=== PATIENT | male | born 1960 | race Caucasian/White ===

== ENCOUNTER 2019-07-11 08:36 | Outpatient (CLI) | payer BC, SELFPAY ==
--- NOTE | 2019-07-11 08:45 | US_ITS ---
WS: [id number] ULTRASOUND THYROID TECHNIQUE: Ultrasound of the thyroid. CLINICAL INFORMATION: mass of right side of neck COMPARISON: None. FINDINGS: Thyroid: Large right thyroid nodule measuring 4.0 x 2.5 x 3.3 CM. Recommend further evaluation with F NA. Associated vascularity. Right thyroid lobe: 6.7 cm x 3.3 cm x 3.2 cm Left thyroid lobe: 4.1 cm x 1.3 cm x 1.3 cm. A few incidental tiny cysts likely benign colloid cysts. Isthmus: 0.3 mm. Cervical lymphadenopathy: None. US/US thyroid 62525 IMPRESSION: 1. Dominant right thyroid nodule measuring 4.0 CM. Recommend further evaluatio n with FNA. 2. A few tiny colloid cysts left thyroid.
== END 2019-07-11 08:37 | disposition home or self-care (01) ==
LOC: RAD 08:38
PROVIDERS: Family Provider Nurse Practitioner Family; PCP Registered Nurse; Visit Provider Registered Nurse
DX: R22.1 Localized swelling, mass and lump, neck (principal); E04.1 Nontoxic single thyroid nodule
CPT/HCPCS: 76536

== ENCOUNTER → 2019-12-12 09:40 | Outpatient (BNVA) | payer BC, SELFPAY | PROVIDERS: Family Provider Nurse Practitioner Family; PCP Registered Nurse; Visit Provider Registered Nurse | DX: E04.1 Nontoxic single thyroid nodule (principal); M71.30 Other bursal cyst, unspecified site; N52.9 Male erectile dysfunction, unspecified; Z12.5 Encounter for screening for malignant neoplasm of prostate | CPT/HCPCS: 80053; 80061; 84402; 84403; 84443; 85025; G0103 ==

== ENCOUNTER → 2020-01-02 08:38 | Outpatient (BNVA) | payer BC, SELFPAY | PROVIDERS: Family Provider Nurse Practitioner Family; PCP Registered Nurse; Referring Provider Registered Nurse; Visit Provider Urology | DX: R97.20 Elevated prostate specific antigen [PSA] (principal); N52.9 Male erectile dysfunction, unspecified; Z80.42 Family history of malignant neoplasm of prostate | CPT/HCPCS: 81001; 84153 ==

== ENCOUNTER → 2020-01-17 12:04 | Outpatient (BNVA) | payer BC, SELFPAY | PROVIDERS: Family Provider Nurse Practitioner Family; PCP Registered Nurse; Visit Provider Urology | DX: R97.20 Elevated prostate specific antigen [PSA] (principal) | CPT/HCPCS: 88305 ==

== ENCOUNTER 2020-02-05 12:59 | Outpatient (CLI) | payer BC, SELFPAY ==
--- NOTE | 2020-02-05 18:29 | N.ONRAD NP_ITS ---
Radiation Oncology New Patient Visit Patient: Rohit Mcdaniel MR#: [id number] : 1960 Age: 59 Sex: Male Dictated by: Dr. Venkatesh Kaiser Date of Service: 02/05/2020 Referring Physician(s) : Dr. Miguel Angel Kendrick Diagnosis: cT1c unfavorable intermediate risk prostate cancer, Eden grade 3+4 in 2/12 cores, and Eden grade 3+3 in 10/12 cores, pretreatment PSA 12.9 ng/mL (01/2020), perineural invasion was identified in the left lateral mid and left lateral base, pretreatment international prostate symptom score of 6, positive pretreatment erectile dysfunction addressed with sildenafil 50 mg. Purpose of Visit: Discuss the role of radiotherapy with curative intent. Chief Complaint / History of Present Illness: History of Present Illness: The patient is a 59-year-old male who had a screening PSA of 10.56 on January 02, 2020. After a repeat PSA of 12.9 nanograms per milliliter (01/17/2020) the patient underwent prostate biopsy by Dr. Kendrick. Pathology revealed Eden score 3+4 in 2/12 cores (70-85% of tissue involved), and Eden score 3+3 in 10/12 cores (5-95% of tissue involved). Perineural invasion was identified in the left lateral mid and left lateral base (both GG 3+3 cores). The patient completed an international prostate symptom score today, and this revealed a total score of 6, which indicates mild urinary symptoms. He reports nocturia once per night. The patient also reports mild to moderate erectile dysfunction requiring the use of sildenafil 50 mg. The patient reports a positive family history of prostate cancer in his father (diagnosed in his 70s). In consultation today, the patient reports no complaints. Current Medications: Levothyroxine Sodium, sildenafil Citrate. Allergies: No Known Allergies Medical History: - Hyperlipidemia, - hypogonadism. No history of collagen vascular disease. No previous radiation therapy. Surgical History: Colonoscopy 9 years ago, hemorrhoidectomy and thyroidectomy in 09/2019. Family History: Father is at age 82 having experienced Prostate Cancer. Social History: Last screened on 02/05/2020 - Never smoked. Last screened on 02/05/2020 - Past drinker. Current Complaints / Review of Systems: Constitutional - Complains of moderate fatigue. Denies fever, night sweats and change in weight. Eyes - Denies blurred vision and double vision. ENMT - Complains of problems with hearing in both ears and wears a hearing aid in both ears. Denies dysphagia, ear pain, mouth dryness, stomatitis and altered taste. Neck - Denies neck pain. Integumentary - Denies rash. Cardiovascular - Denies arrhythmias, chest pain and edema. Respiratory - Denies cough, dyspnea and wheezing. Gastrointestinal - Denies abdominal pain, constipation, diarrhea, heartburn / dyspepsia, hemorrhoids, melena / GI bleeding, nausea and vomiting. Genitourinary (M) - Complains of impotence and nocturia gets up about 1 time per night. Denies dysuria, frequency, hematuria, incontinence and urgency. Musculoskeletal - Complains of joint pain both shoudlers. Denies bone pain and muscle weakness. Neurologic - Denies dizziness, abnormal gait and headaches. Endocrine - Complains of thyroid disease. Denies diabetes. Hematologic/Lymphatic - Denies tender or enlarged lymph nodes.. Vital Signs: Performed on 02/05/2020 2:05 PM BMI - 37.537 kg/m2 (high), Height - 60.00 in, Weight - 192.2 lbs, Temperature - 98.2 f, Pulse - 89, Respiration - 20, O2 Sat - 97 %, Pain - 0 and BP - 134/ 92 mm(hg)(/high). Physical Exam: GENERAL:??? The patient is alert, and in no acute distress. HEENT:??? Head is normocephalic. Face is symmetric. External ocular movements are intact. Sclera and conjunctivae are non erythematous. NECK:??? Trachea is midline.??? Thyroid is not enlarged by palpation.??? LYMPH NODES:??? There is no cervical, supraclavicular, or axillary adenopathy bilaterally. LUNGS:??? Clear to auscultation bilaterally. Respiratory movement is unlabored. HEART:??? Regular rate and rhythm. PURA: Digital rectal examination revealed a normal rectal tone, a firm prostate without nodularity, and Hemoccult test was negative. ABDOMEN:??? Soft, nontender, without palpable mass.??? No hepatosplenomegaly. EXTREMITIES:??? No deformities. NEUROLOGIC:??? Gait and station are normal.??? The patient is well coordinated and strength is equal bilaterally. COMPUTER SYSTEM SPECIALIST:??? Cranial nerves II-XII are intact and without focal deficits.??? Psych: Affect is normal. Skin: Cursory review of the skin reveals no obvious lesions concerning for malignancy. Performance Status: 0 - Fully active, able to carry on all predisease activities without restrictions. (ECOG) Pain assessment: This patient???s pain was personally assessed by me. This patient requires no adjustments to pain medications at this time. Assessment/Plan: The patient is a 59-year-old male with a 22-year median life expectancy (per social security data tables) and a new diagnosis of cT1c unfavorable intermediate risk prostate cancer (per NCCN guidelines) due to: -) Two intermediate risk factors which include grade group 2, and PSA ranging from 10-20 ng/mL; plus, -) 100% of cores were positive for disease. Biopsy revealed that 10/12 cores were positive for Dom score 3+3 (5-95% of tissue involved), and 2 cores were positive for Dom score 3+4 (70% -85% of tissue involved). The estimated risk for extracapsular extension was 77% per [facility] prediction tools, the predicted risk for lymph node involvement was 19%, and the predicted risk of seminal vesicle invasion was 24%. His pretreatment PSA is 12.9 ng/mL (01/2020), his pretreatment international prostate symptom score is 6 indicating mild urinary symptoms, and he reports requiring the use of Viagra to address mild to moderate erectile dysfunction. The patient's pretreatment PSA volume is 26 cc per ultrasound (01/17/2020). The patient was presented with treatment options which included surgical resection, prostate seed brachytherapy, and external beam radiation therapy. We discussed prognosis, pros and cons of various treatment modalities, radiation treatment logistics, and potential treatment related side effects. In order to help the patient???s decision process, I recommend an MRI of the prostate to determine if there is any radiographic concern for extracapsular extension or pelvic lymphadenopathy. The patient is scheduled to see a surgeon to discuss prostatectomy within the next week, and hopefully we can have this MRI completed prior to that visit. I have requested office staff to assist in ordering this MRI. All the patient's questions were answered, and the patient will share his answer regarding which treatment modality he would like to consider after he consults with the surgeon. I also recommended that the patient be considered for short-term androgen deprivation therapy (4-6 months). Signed by: Venkatesh Kaiser MD 02/05/2020 6:28:07 PM <<Signature on File>> Time spent with patient: CPT Code: CPT Code:
== END 2020-02-05 13:00 | disposition home or self-care (01) ==
LOC: ONCMED 13:03
PROVIDERS: PCP Registered Nurse; Visit Provider Radiology Radiation Oncology
DX: C61 Malignant neoplasm of prostate (principal); Z80.42 Family history of malignant neoplasm of prostate
CPT/HCPCS: 99205

== ENCOUNTER 2020-02-05 13:25 | Outpatient (CLI) | payer BC, SELFPAY ==
[2020-02-05 14:41] LABS: Thyroid Stimulating Hormone 4.71 uIU/mL (0.27-4.20)
== END 2020-02-05 13:26 | disposition home or self-care (01) ==
LOC: LAB 13:27
PROVIDERS: PCP Registered Nurse; Visit Provider Registered Nurse
DX: E03.9 Hypothyroidism, unspecified (principal)
CPT/HCPCS: 84443

== ENCOUNTER 2020-05-27 13:55 | Outpatient (CLI) | payer BC, SELFPAY ==
[2020-05-27 14:49] LABS: Thyroid Stimulating Hormone 3.68 uIU/mL (0.27-4.20)
[2020-05-27 14:51] LABS: Alanine Aminotransferase 30 U/L (0-41); Albumin Level 4.7 g/dL (3.5-5.2); Alkaline Phosphatase 72 IU/L (40-130); Anion Gap 16.1 (5-19); Aspartate Amino Transferase 26 U/L (0-40); Blood Urea Nitrogen 10 mg/dL (6-20); Calcium 9.6 mg/dL (8.5-10.5); Carbon Dioxide 25 mmol/L (22-29); Chloride 100 mmol/L (98-107); Globulin 2.6 g/dL (1.3-4.6); Glomerular Filtration Rate 137.9 mL/min (90-130); Glucose 91 mg/dL (65-115); Osmolality Calculated 283 mOsm/kg (285-295); Potassium 4.1 mmol/L (3.5-5.1); Sodium 137 mmol/L (136-145); Total Bilirubin 0.3 mg/dL (0.15-1.2); Total Protein 7.3 g/dL (6.6-8.7)
== END 2020-05-27 13:56 | disposition home or self-care (01) ==
LOC: LAB 14:00
PROVIDERS: PCP Registered Nurse; Visit Provider Registered Nurse
DX: E03.9 Hypothyroidism, unspecified (principal)
CPT/HCPCS: 36415; 80053; 84443

== ENCOUNTER → 2020-06-24 16:26 | Outpatient (BNVA) | payer BC, SELFPAY | PROVIDERS: PCP Registered Nurse; Visit Provider Urology | DX: C61 Malignant neoplasm of prostate (principal); N52.9 Male erectile dysfunction, unspecified; N39.3 Stress incontinence (female) (male) | CPT/HCPCS: 81003; 84153 ==

== ENCOUNTER → 2020-07-09 09:10 | Outpatient (BNVA) | payer BC, SELFPAY | PROVIDERS: PCP Registered Nurse; Visit Provider Registered Nurse | DX: E29.1 Testicular hypofunction (principal); R53.83 Other fatigue | CPT/HCPCS: 84402; 84403 ==

== ENCOUNTER → 2020-08-06 08:11 | Outpatient (BNVA) | payer BC, SELFPAY | PROVIDERS: PCP Registered Nurse; Visit Provider Registered Nurse | DX: E03.9 Hypothyroidism, unspecified (principal) | CPT/HCPCS: 84443 ==

== ENCOUNTER → 2020-09-22 13:38 | Outpatient (BNVA) | payer BC, SELFPAY | PROVIDERS: PCP Registered Nurse; Visit Provider Urology | DX: N39.9 Disorder of urinary system, unspecified (principal); E29.1 Testicular hypofunction; C61 Malignant neoplasm of prostate; N39.3 Stress incontinence (female) (male); N52.34 Erectile dysfunction following simple prostatectomy | CPT/HCPCS: 81003; G0103 ==

== ENCOUNTER → 2020-11-10 10:53 | Outpatient (BNVA) | payer BC, SELFPAY | PROVIDERS: PCP Registered Nurse; Visit Provider Registered Nurse | DX: E03.9 Hypothyroidism, unspecified (principal); R53.83 Other fatigue | CPT/HCPCS: 82607; 84439; 84443; 84481 ==

== ENCOUNTER → 2020-11-19 07:54 | Outpatient (BNVA) | payer BC, SELFPAY | PROVIDERS: PCP Registered Nurse; Visit Provider Urology | DX: C61 Malignant neoplasm of prostate (principal); E29.1 Testicular hypofunction; N52.34 Erectile dysfunction following simple prostatectomy; N39.3 Stress incontinence (female) (male) | CPT/HCPCS: 81003 ==

== ENCOUNTER → 2020-12-22 08:03 | Outpatient (BNVA) | payer BC, SELFPAY | PROVIDERS: PCP Registered Nurse; Visit Provider Urology | DX: R53.83 Other fatigue (principal); C61 Malignant neoplasm of prostate; N52.34 Erectile dysfunction following simple prostatectomy; E03.9 Hypothyroidism, unspecified | CPT/HCPCS: 81003; 84153; 84403 ==

== ENCOUNTER → 2021-03-05 08:27 | Outpatient (BNVA) | payer BC, SELFPAY | PROVIDERS: PCP Registered Nurse; Visit Provider Surgery | DX: K40.90 Unilateral inguinal hernia, without obstruction or gangrene, not specified as recurrent (principal) | CPT/HCPCS: 87635 ==

== ENCOUNTER 2021-03-10 06:03 | Day surgery (SDC) | payer BC, SELFPAY ==
[2021-03-09 09:59] VITALS: BMI 26.5
[2021-03-10] VITALS (14 sets, daily range): BP systolic 124–145; BP diastolic 86–107; PULSE 73–88; RESP 15–18; TEMP 36.1–36.7; O2SAT 95–100
[2021-03-10] MEDS: sodium chloride 0.9% 1,000 ML 30 ML IV (06:42)
--- NOTE | 2021-03-10 06:46 | ANES.PREANE2 ---
Pre-Anesthetic Assessment Pre-Anesthetic Assessment: Height/Weight: Height 1.78 m Weight 83.915 kg Temp Pulse Resp BP Pulse Ox 97.5 F L 81 18 144/93 96 03/10/21 06:17 03/10/21 06:17 03/10/21 06:17 03/10/21 06:17 03/10/21 06:17 Preop Diagnosis: Right inguinal hernia Proposed Procedure: Operation Date: 03/10/21 07:00 Proposed Procedures p Laparoscopic Inguinal Hernia Repair 96513 K40.90(Not Applicable) - Romeo Aquino MD Was Beta Neno taken within 24 hours: N/A Was Clonidine taken within 24 hours: N/A Last intake: Intake Last Liquid Date 03/09/21 Last Liquid Time 22:00 Last Solid Date 03/09/21 Last Solid Time 22:00 Exam: Pre-Anes Outpt Exam: alert, oriented x 3 and clear to auscultation bilaterally Airway: Submandibular: WNL Cervical ROM: WNL MP: 3 Dentition: Full History/ROS: Other Pulmonary: Pulmonary: None reported CV/HEM: CV/HEM: None reported : : None reported Hepatic: Hepatic: None reported GI: GI: None reported Metabolic: Metabolic: Thyroid (s/p thyroidectomy 2019) Musc/skel: Musc/skel: None reported Neuropsych: Neuropsych: None reported Anesthetic Plan: ASA status: 2 Anesthesia: General Risk of > 500 ml blood loss (7ml/kg in children): No Meds/Allergies Current Medications: Current Medications Generic Name Dose Route Start Last Admin Trade Name Freq PRN Reason Stop Dose Admin Sodium Chloride 1,000 mls @ 30 ml s/hr 03/10/21 06:00 03/10/21 06:42 Sodium Chloride 0.9% IV 03/11/21 05:59 30 mls/hr .Q24H ASTRID Administration PFSH Anesthesia PFSH: Medical History (Updated 02/23/21 @ 17:15 by Romeo Aquino MD) COVID-19 Hyperlipidemia Hypogonadism in male Prostate cancer Surgical History (Updated 02/23/21 @ 15:02 by Romeo Aquino MD) History of thyroid surgery Hx of hemorrhoidectomy Hx of tonsillectomy Status post prostatectomy Family History Father Cancer Social History (Updated 02/23/21 @ 14:50 by Keyana Mena CMA) Adopted: No Caregiver/support person: No Lives independently: No Household members: spouse Marital status: History of recent travel: No Data Anesthesia Cardiac Studies: No Data to Display
--- NOTE | 2021-03-10 06:52 | W.PM.OPSUD ---
Surgery/Procedure H&P Update DATE OF PROCEDURE: March 10, 2021 DATE H&P PERFORMED: 02/23/21 H&P UPDATE INFORMATION: I have reviewed H&P completed within last 30 days, I have examined patient prior to procedure and No changes to prior documentation PREOP DIAGNOSIS: Right inguinal hernia PLANNED PROCEDURE: Operation Date: 03/10/21 07:00 Proposed Procedures p Laparoscopic Inguinal Hernia Repair 43822 K40.90(Not Applicable) - Romeo Aquino MD
[2021-03-10] MEDS: fentaNYL 50 mcg/mL INJ 2mL IVP ×2 (08:52→09:01)
--- NOTE | 2021-03-10 09:14 | P.PCN_ITS ---
PACU note Post-Anesthesia Exam: awake Disposition: discharged
--- NOTE | 2021-03-10 09:14 | PM.PACU ---
PACU note Post-Anesthesia Exam: awake Disposition: discharged
[2021-03-10] MEDS: HYDROcodone-acetaminophen 5-325 mg Tablet 1 TAB PO (09:43)
--- NOTE | 2021-03-10 13:05 | P.OP_ITS ---
Operative Report Date of procedure: March 10, 2021 Pre-op Diagnosis: Symptomatic reducible right inguinal hernia Post-op Diagnosis: Right reducible indirect inguinal hernia Adhesions from prior robotic prostatectomy in the midline Procedure Done: Laparoscopic total extraperitoneal repair of right indirect inguinal hernia with Surgimax 3D 16 x 10 cm mesh Pathology: none sent Surgeon: Romeo Aquino Anesthesia: General Condition: stable Disposition: PACU Procedure: The patient was taken to the operating room. After IV antibiotic was administered, the abdomen was prepped and draped in a sterile manner. Using a 15 blade, a 1.0 cm transverse incision was made infraumbilically on the right side. Subcutaneous tissue was divided using electrocautery and the anterior rectus sheath divided using an 11 blade. The rectus muscle was retracted laterally and the extraperitoneal space identified. A 11 mm port was placed and 12 mm of pneumoperitoneum was created. A 10 mm 30? scope was introduced and the retrorectus space was opened using the camera up to the pubic symphysis and 5 mm ports were placed in the midline, one 2-fingerbreadths above the pubic symphysis and the other midway between these two ports under direct visualization. Blunt dissection was carried out to open up the tissue in the midline and to the pubic symphysis, which was identified. There were adhesions in the space of Retzius from robotic prostatectomy and this was partially taken down using laparoscopic scissors. The dissection was carried laterally where the iliopubic tract was identified. There was no femoral, obturator or direct hernia noted. The infe rior epigastric artery was identified and dissection was carried posterior to it and laterally, the space was opened up to the level of the umbilicus superior to the anterior superior iliac spine. I proceeded to dissect out the spermatic cord and the indirect hernial sac was reduced . 16 x 10cm Surgimax 3D mesh was rolled and introduced through the 10 mm port and then rolled laterally and appos ed well against the abdominal wall to cover the myopectineal orifice completely. 10 Cc of 0.5% Marcaine was infiltrated into the preperitoneal space. The extraperitoneal space was desufflated under direct visualization to ensure no slippage of hernial sac under the mesh. All ports were removed, the anterior rectus fascia at the infraumbilical port closed using figure of eight 0 Vicryl sutures, subcutaneous tissue approximated using 3-0 Vicryl sutures and skin at all three port sites were closed using running subcuticular 4-0 Monocryl sutures and Dermabond. 10 mL of 0.5% Marcaine was infiltrated at the port sites. The patient was stable throughout the procedure.
--- NOTE | 2021-03-10 13:15 | ANE.PACU2 ---
Inpatient post-anesthesia follow up: Airway intact: Yes Vital signs: Temperature 98.1 F Pulse Rate 88 Respiratory Rate 18 Blood Pressure 138/94 Pulse Oximetry 98 Oxygen Delivery Me thod Room Air Oxygen Flow Rate 6 Fraction of Inspir ed Oxygen Hydration adequate: Yes Nausea and vomiting: No Pain level: 2 Mental status: Baseline
== END 2021-03-10 10:05 | disposition home or self-care (01) ==
PROVIDERS: PCP Registered Nurse; Visit Provider Surgery
PROC: (CPT 49650; principal; 2021-03-10 07:00)
DX: K40.90 Unilateral inguinal hernia, without obstruction or gangrene, not specified as recurrent (principal); K66.0 Peritoneal adhesions (postprocedural) (postinfection); E78.5 Hyperlipidemia, unspecified; Z85.46 Personal history of malignant neoplasm of prostate; Z86.16 Personal history of COVID-19
CPT/HCPCS: 49650; C1781; J0690; J1100; J2370; J2405; J2704; J2710; J3010; J3490; J7030

== ENCOUNTER → 2021-03-24 08:31 | Outpatient (BNVA) | payer BC, SELFPAY | PROVIDERS: PCP Registered Nurse; Visit Provider Urology | DX: C61 Malignant neoplasm of prostate (principal); N52.34 Erectile dysfunction following simple prostatectomy | CPT/HCPCS: 81003; 84153 ==

== ENCOUNTER → 2021-05-18 13:12 | Outpatient (BNVA) | payer BC, SELFPAY | PROVIDERS: PCP Registered Nurse; Visit Provider Urology | DX: C61 Malignant neoplasm of prostate (principal); N52.34 Erectile dysfunction following simple prostatectomy; N50.89 Other specified disorders of the male genital organs | CPT/HCPCS: 81003; 84153 ==

== ENCOUNTER 2021-06-22 07:07 | Outpatient (CLI) | payer BC, SELFPAY ==
--- NOTE | 2021-06-22 07:30 | US_ITS ---
WS: [id number] SCROTAL ULTRASOUND EXAMINATION CLINICAL INFORMATION: SCROTAL MASS COMPARISON: None. FINDINGS: TESTES Normal in size and echotexture, without focal lesion. Color Doppler: Normal color Doppler flow pattern. Right testes size: 4.6 cm x 3.4 cm x 3.0 cm. Left testes size: 4.3 cm x 3.3 cm x 2.1 cm. EPIDIDYMIDES Right epididymal cyst measuring 2.0 x 2.2 x 3.5 cm. Normal left epididymis. Right epididymis size: 5.7 cm x cm x 2.2 cm. Left epididymis size: 4.4 cm x 1.4 cm x 1.2 cm. HYDROCELE Small right hydrocele VARICOCELE None. OTHER FINDINGS None. US/US scrotum 60060 IMPRESSION: 1. Right epididymal cyst measuring 2.0 x 2.2 x 3.5 cm. 2. Small right hydrocele. 3. Testicles are otherwise normal in appearance. 4. Exam otherwise unremarkable.
== END 2021-06-22 07:08 | disposition home or self-care (01) ==
PROVIDERS: PCP Registered Nurse; Visit Provider Urology
DX: N50.89 Other specified disorders of the male genital organs (principal); N50.3 Cyst of epididymis; N43.3 Hydrocele, unspecified
CPT/HCPCS: 76870; 81003

== ENCOUNTER → 2021-09-30 08:36 | Outpatient (BNVA) | payer BC, SELFPAY | PROVIDERS: PCP Registered Nurse; Visit Provider Registered Nurse | DX: E78.5 Hyperlipidemia, unspecified (principal); E03.9 Hypothyroidism, unspecified; C61 Malignant neoplasm of prostate; Z00.00 Encounter for general adult medical examination without abnormal findings; Z12.11 Encounter for screening for malignant neoplasm of colon | CPT/HCPCS: 80053; 80061; 84153; 84443; 85025 ==

== ENCOUNTER → 2021-12-03 08:05 | Outpatient (BNVA) | payer BC, SELFPAY | PROVIDERS: PCP Registered Nurse; Visit Provider Urology | DX: N39.3 Stress incontinence (female) (male) (principal); N52.9 Male erectile dysfunction, unspecified; N52.34 Erectile dysfunction following simple prostatectomy; C61 Malignant neoplasm of prostate; N48.6 Induration penis plastica | CPT/HCPCS: 81003 ==

== ENCOUNTER 2022-01-19 08:42 | Day surgery (SDC) | payer BC, SELFPAY ==
[2022-01-18 09:08] VITALS: BMI 25.8
[2022-01-19 09:14] VITALS: BP 133/95; PULSE 89; RESP 18; TEMP 36.1; O2SAT 98
[2022-01-19] MEDS: sodium chloride 0.9% 1,000 ML 30 ML IV (09:20)
--- NOTE | 2022-01-19 10:08 | ANES.PREANE2 ---
Pre-Anesthetic Assessment Height/Weight: Height 1.78 m Weight 81.647 kg Temp Pulse Resp BP Pulse Ox O2 Del Method 97 F L 89 18 133/95 98 01/19/22 09:14 01/19/22 09:14 01/19/22 09:14 01/19/22 09:14 01/19/22 09:14 01/19/22 09:14 Preop Diagnosis: diagnostic Operation Date: 01/19/22 10:15 Proposed Procedures p Screening [id number](Not Applicable) - Romeo Aquino MD Familial anesthetic complications: None Was Beta Neno taken within 24 hours: N/A Was Clonidine taken within 24 hours: N/A Last intake: Intake Last Liquid Date 01/18/22 Last Liquid Time 21:30 Last Solid Date 01/17/22 Last Solid Time 22:00 Social No alcohol and No tobacco Exam alert, oriented x 3, clear to auscultation bilaterally and regular rate & rhythm Airway Mallampati: Class II Dentition: full Pulmonary None reported CV/HEM None reported None reported Metabolic Hyperlipidemia and Thyroid Disease Anesthetic Plan ASA status: 2 Anesthesia: MAC Medications/Allergies Home Medications Medication Instructions Recorded Confirmed Last Taken Type elderberry fruit 200 mg capsule 200 mg PO DAILY 01/29/20 01/19/22 01/17/22 History levothyroxine 100 mcg tablet 100 mcg PO DAILY 03/09/21 01/19/22 01/19/22 History loratadine 10 mg capsule 10 mg PO DAILY PRN Allergy Symptoms 12/03/21 01/19/22 Unknown History tadalafil 20 mg tablet 20 mg PO DAILY PRN sexual activity 12/03/21 01/18/22 Unknown Rx #20 tabs trimix injection 12/03/21 12/03/21 Unknown History Allergies Allergy/AdvReac Type Severity Reaction Status Date / Time No Known Allergies Allergy Verified 12/03/21 08:11 Current Medications Generic Name Dose Route Start Last Admin Trade Name Freq PRN Reason Stop Dose Admin Sodium Chloride 1,000 mls @ 30 mls/hr 01/19/22 09:15 01/19/22 09:20 Sodium Chloride 0.9% IV 01/20/22 09:14 30 mls/hr .Q24H ASTRID Administration PFSH Anesthesia Medical History COVID-19 Hyperlipidemia Hypogonadism in male Peyronie's disease First noticed May 2021. Mild curvature. Plaque at base. Elected conservative treatment with vitamin E initially. All options were reviewed Prostate cancer Surgical History History of thyroid surgery Hx of hemorrhoidectomy Hx of tonsillectomy Status post prostatectomy Status post right inguinal hernia repair (03/10/21) Family History Father Cancer Social History Smoking and tobacco status: never smoked Adopted: No Caregiver/support person: No Lives independently: No Household members: spouse Marital status: Current occupational status: unemployed History of recent travel: No Data Anesthesia Cardiac Studies: No Data to Display
--- NOTE | 2022-01-19 10:54 | P.HP_ITS ---
Same Day Surgery H&P Indication for Procedure/HPI DATE OF PROCEDURE: January 19, 2022 CHIEF COMPLAINT/INDICATIONFOR SURGICAL PROCEDURE: colonoscopy PREOP DIAGNOSIS: diagnostic PLANNED PROCEDURE: Operation Date: 01/19/22 10:15 Proposed Procedures p Screening [id number]/Z12.11(Not Applicable) - Romeo Aquino MD Medications/Allergies* Home Medications Medication Instructions Recorded Confirmed Type elderberry fruit 200 mg capsule 200 mg PO DAILY 01/29/20 01/19/22 History levothyroxine 100 mcg tablet 100 mcg PO DAILY 03/09/21 01/19/22 History loratadine 10 mg capsule 10 mg PO DAILY PRN Allergy Symptoms 12/03/21 01/19/22 History trimix injection 12/03/21 12/03/21 History Allergies/Adverse Reactions Allergy/AdvReac Type Severity Reaction Status Date / Time No Known Allergies Allergy Verified 12/03/21 08:11 Current Medications: Generic Name Dose Route Start Last Admin Trade Name Freq PRN Reason Stop Dose Admin Sodium Chloride 1,000 mls @ 30 mls/hr 01/19/22 09:15 01/19/22 09:20 Sodium Chloride 0.9% IV 01/20/22 09:14 30 mls/hr .Q24H ASTRID Administration Pertinent History/Comorbid Conditions* Medical History (Updated 09/30/21 @ 08:59 by PANDA Delarosa) COVID-19 Hyperlipidemia Hypogonadism in male Peyronie's disease First noticed May 2021. Mild curvature. Plaque at base. Elected conservative treatment with vitamin E initially. All options were reviewed Prostate cancer Surgical History (Updated 03/10/21 @ 08:28 by Romeo Aquino MD) History of thyroid surgery Hx of hemorrhoidectomy Hx of tonsillectomy Status post prostatectomy Status post right inguinal hernia repair (03/10/21) Family History (Updated 07/10/19 @ 15:53 by Lisandro Gutierrez LPN) Cancer Father Social History Smoking and tobacco status: never smoked Adopted: No Caregiver/support person: No Lives independently: No Household members: spouse Marital status: Current occupational status: unemployed History of recent travel: No Pertinent Exam Findings alert, oriented x 3 and regular rate & rhythm Recommendations Surgery/Procedure today Coding Level of Care Code Acute Design Technology Professor for Chg Fwd
[2022-01-19 11:52] VITALS: BP 119/84; PULSE 89; RESP 18; TEMP 36.1; O2SAT 95
[2022-01-19 12:23] VITALS: BP 130/92; PULSE 80; RESP 18; O2SAT 98
--- NOTE | 2022-01-19 17:55 | ANE.PACU2 ---
Inpatient post-anesthesia follow up: Airway intact: Yes Vital signs: Temperature 97.0 F Pulse Rate 80 Respiratory Rate 18 Blood Pressure 130/92 Pulse Oximetry 98 Oxygen Delivery Me thod Room Air Oxygen Flow Rate Fraction of Inspir ed Oxygen Hydration adequate: Yes Nausea and vomiting: No Pain level: 1 Mental status: Baseline
== END 2022-01-19 12:44 | disposition home or self-care (01) ==
PROVIDERS: PCP Registered Nurse; Visit Provider Surgery
PROC: 0DJD8ZZ Inspection of Lower Intestinal Tract, Via Natural or Artificial Opening Endoscopic (ICD-10-PCS; CPT 45378; principal; 2022-01-19 10:15)
DX: Z12.11 Encounter for screening for malignant neoplasm of colon (principal); D12.2 Benign neoplasm of ascending colon; K57.30 Diverticulosis of large intestine without perforation or abscess without bleeding; K64.8 Other hemorrhoids; E78.5 Hyperlipidemia, unspecified; Z86.16 Personal history of COVID-19; Z85.46 Personal history of malignant neoplasm of prostate
CPT/HCPCS: 45380; 88305; J2704; J7030

== ENCOUNTER → 2022-06-07 13:57 | Outpatient (BNVA) | payer BC, SELFPAY | PROVIDERS: PCP Registered Nurse; Visit Provider Urology | DX: C61 Malignant neoplasm of prostate (principal); N52.9 Male erectile dysfunction, unspecified | CPT/HCPCS: 84153 ==

== ENCOUNTER 2022-11-17 13:44 | Outpatient (CLI) | payer BC, SELFPAY ==
[2022-11-17 15:10] LABS: Prostate Specific AG Urology < 0.01 ng/mL (0-4)
== END 2022-11-17 13:45 | disposition home or self-care (01) ==
LOC: LAB 13:45
PROVIDERS: PCP Registered Nurse; Visit Provider Urology
DX: R97.20 Elevated prostate specific antigen [PSA] (principal)
CPT/HCPCS: 84153

== ENCOUNTER → 2022-11-22 08:46 | Outpatient (BNVA) | payer BC, SELFPAY | PROVIDERS: PCP Family Medicine; Visit Provider Urology | DX: N39.3 Stress incontinence (female) (male) (principal); C61 Malignant neoplasm of prostate; N52.34 Erectile dysfunction following simple prostatectomy | CPT/HCPCS: 81003 ==

== ENCOUNTER 2023-02-16 20:00 | Outpatient (CLI) | payer BC, SELFPAY | END 2023-02-16 20:01 | disposition home or self-care (01) | LOC: SLEEP 02-17 04:12 | PROVIDERS: PCP Family Medicine; Visit Provider Family Medicine | DX: G47.10 Hypersomnia, unspecified (principal); E03.9 Hypothyroidism, unspecified; R53.83 Other fatigue; R06.83 Snoring; F42.9 Obsessive-compulsive disorder, unspecified | CPT/HCPCS: G0399 ==

== ENCOUNTER 2023-04-03 20:00 | Outpatient (CLI) | payer BC, SELFPAY | END 2023-04-03 20:01 | disposition home or self-care (01) | LOC: SLEEP 04-04 05:49 | PROVIDERS: PCP Family Medicine; Visit Provider Family Medicine | DX: G47.33 Obstructive sleep apnea (adult) (pediatric) (principal) | CPT/HCPCS: 95810 ==